=== PATIENT | male | born 1985 | race African-American/Black ===

== ENCOUNTER 2019-07-11 22:37 | Emergency (ER) | payer MEDICAID ==
[~2019-07-11] VITALS: Ht 172.7 cm; Wt 88.0 kg
[2019-07-12] MEDS ORDERED: IBUPROFEN 600MG TABLET PO ONE (01:45)
[2019-07-12 03:22] VITALS: BP 132/82
== END 2019-07-12 03:42 | disposition home or self-care (01) ==
LOC: ER 22:37
DX: S82.891A Other fracture of right lower leg, initial encounter for closed fracture (principal); F41.9 Anxiety disorder, unspecified; J45.909 Unspecified asthma, uncomplicated; Z88.0 Allergy status to penicillin; X58.XXXA Exposure to other specified factors, initial encounter; Y93.89 Activity, other specified; Y92.89 Other specified places as the place of occurrence of the external cause; Y99.8 Other external cause status
CPT/HCPCS: 29515; 73590; 73610; 99283